=== PATIENT | male | born 1985 | race Caucasian/White ===

== ENCOUNTER 2020-06-10 06:07 | Emergency (ER) | payer OTHER ==
[~2020-06-10] VITALS: Ht 177.8 cm; Wt 83.9 kg
[~2020-06-10 06:07] MED LIST: AZIT250 PO; CEPH500 PO; HYDACE5 PO; PENVK500; Percocet 5-3251 EACH PO; RXCEPH500 PO; RXHYDACE PO; Ultram50 MG PO
[2020-06-10 07:12] LABS: BASOPHILS ABSOLUTE AUTO 0.07 K/mm3 (0.00-0.23); BASOPHILS PERCENT AUTO 1 % (0-2); EOSINOPHILS ABSOLUTE AUTO 0.13 K/mm3 (0.00-0.68); EOSINOPHILS PERCENT AUTO 1 % (0-6); Hematocrit 38.6 % (37.0-53.0); Hemoglobin 11.9 g/dL (13.5-17.5); IMMATURE GRAN PERCENT AUTO 1 % (0-1); LYMPHOCYTES ABSOLUTE AUTO 1.53 K/mm3 (0.84-5.20); LYMPHOCYTES PERCENT AUTO 16 % (21-46); MONOCYTES ABSOLUTE AUTO 0.82 K/mm3 (0.16-1.47); MONOCYTES PERCENT AUTO 9 % (4-13); Mean Corpuscular HGB 28.4 pg (26.0-34.0); Mean Corpuscular HGB Conc 30.8 g/dL (31.5-36.5); Mean Corpuscular Volume 92 fL (80-100); Mean Platelet Volume 9.7 fL (9.1-12.4); NEUTROPHILS ABSOLUTE AUTO 6.96 K/mm3 (1.96-9.15); NEUTROPHILS PERCENT AUTO 73 % (41-73); Platelet Count 423 K/mm3 (150-400); RDW Coefficient Variation 14.4 % (11.7-14.2); RDW Standard Deviation 48.4 fL (35.1-46.3); Red Blood Cell Count 4.19 M/mm3 (4.30-5.90); White Blood Cell Count 9.61 K/mm3 (4.00-11.30)
[2020-06-10 07:22] LABS: Anion Gap 6 mmol/L (6-16); Blood Urea Nitrogen 19 mg/dL (8-24); Bun/Creatinine Ratio 20.5 (12.0-20.0); CO2, Blood 29 mmol/L (21-32); Calcium, Blood 8.6 mg/dL (8.5-10.1); Chloride, Blood 107 mmol/L (98-108); Creatinine, Blood 0.93 mg/dL (0.60-1.20); Glomerular Filtration Rate >60 (60-); Glucose, Blood 127 mg/dL (70-99); Potassium, Blood 4.1 mmol/L (3.5-5.5); Sodium, Blood 142 mmol/L (136-145)
== END 2020-06-10 08:50 | disposition home or self-care (01) ==
LOC: ER 06:07
PROVIDERS: Emergency Medicine
DX: S30.1XXA Contusion of abdominal wall, initial encounter (principal); S80.11XA Contusion of right lower leg, initial encounter; Z88.5 Allergy status to narcotic agent; Z88.8 Allergy status to other drugs, medicaments and biological substances; F17.210 Nicotine dependence, cigarettes, uncomplicated; V29.60XA Unspecified motorcycle rider injured in collision with unspecified motor vehicles in traffic accident, initial encounter; Y92.410 Unspecified street and highway as the place of occurrence of the external cause
CPT/HCPCS: 36415; 73701; 74177; 80048; 85025; 99284-25; Q9967

== ENCOUNTER 2021-05-13 20:34 | Emergency (ER) | payer OTHER ==
[~2021-05-13] VITALS: Ht 177.8 cm; Wt 95.2 kg
[2021-05-13] MEDS ORDERED: KETO10 PO (21:00)
[2021-05-13] MEDS ORDERED: Amoxicillin500 MG PO (21:00)
== END 2021-05-13 21:03 | disposition home or self-care (01) ==
LOC: ER 20:34
DX: K02.9 Dental caries, unspecified (principal); F17.210 Nicotine dependence, cigarettes, uncomplicated
CPT/HCPCS: 99282; A9270

== ENCOUNTER 2021-11-29 16:44 | Emergency (ER) | payer OTHER ==
[~2021-11-29] VITALS: Ht 177.8 cm; Wt 97.5 kg
[~2021-11-29 16:44] MED LIST changes: +Amoxicillin500 MG PO; +KETO10 PO
[2021-11-29] MEDS ORDERED: Bactrim Ds Tab1 EACH PO (19:42)
== END 2021-11-29 19:55 | disposition home or self-care (01) ==
LOC: ER 16:44
DX: J02.9 Acute pharyngitis, unspecified (principal); F17.210 Nicotine dependence, cigarettes, uncomplicated
CPT/HCPCS: 36415; 86308; 87081; 87430; A9270; J1100

== ENCOUNTER → 2022-03-07 | Outpatient (CLI) | payer OTHER ==
[~2022-03-07] MED LIST changes: +Bactrim Ds Tab1 EACH PO
[2022-03-09 01:10] LABS: CHLAMYDIA BY NAA Negative (Negative); GONOCOCCUS BY NAA Negative (Negative); TRICH VAG BY NAA Negative (Negative)
== END | disposition home or self-care (01) ==
LOC: LAB SHORT 09:40 → LAB 09:40
PROVIDERS: Registered Nurse Community Health
DX: Z20.2 Contact with and (suspected) exposure to infections with a predominantly sexual mode of transmission (principal)
CPT/HCPCS: 87491; 87591; 87661

== ENCOUNTER 2024-07-18 05:36 | Emergency (ER) | payer OTHER ==
[~2024-07-18] VITALS: Ht 177.8 cm; Wt 99.8 kg
[~2024-07-18 05:36] MED LIST changes: +Veetids 500500 MG PO
[2024-07-18 09:18] VITALS: BP 129/86
== END 2024-07-18 10:13 | disposition home or self-care (01) ==
LOC: ER 05:36
DX: M25.611 Stiffness of right shoulder, not elsewhere classified (principal); R53.1 Weakness; F17.210 Nicotine dependence, cigarettes, uncomplicated; Z88.5 Allergy status to narcotic agent; Z88.8 Allergy status to other drugs, medicaments and biological substances
CPT/HCPCS: 73030; 99283-25